=== PATIENT | female | born 1955 | race Native Hawaiian/Other Pacific Islander ===

== ENCOUNTER 2018-03-10 07:47 | Outpatient (CLI) | payer OTHER | END 2018-03-10 22:45 | disposition home or self-care (01) | LOC: LABW 07:47 | DX: R19.7 Diarrhea, unspecified (principal) | CPT/HCPCS: 82272; 83630; 87015; 87045; 87324; 87328; 87329; 87449; 87899 ==

== ENCOUNTER 2018-04-10 10:39 | Outpatient (CLI) | payer OTHER | END 2018-04-10 19:10 | disposition home or self-care (01) | LOC: LAB 10:39 | DX: K64.0 First degree hemorrhoids (principal) | CPT/HCPCS: 82272 ==

== ENCOUNTER 2018-05-28 13:59 | Outpatient (CLI) | payer OTHER | END 2018-05-28 19:49 | disposition home or self-care (01) | LOC: LABW 13:59 | DX: R50.9 Fever, unspecified (principal); M79.10 Myalgia, unspecified site; R05 Cough; R53.83 Other fatigue | CPT/HCPCS: 87502 ==

== ENCOUNTER 2018-09-22 13:20 | Emergency (ER) | payer OTHER ==
[~2018-09-22] VITALS: Ht 174 cm; Wt 95.3 kg
[2018-09-22] MEDS ORDERED: ROSU10TA PO (13:42)
[2018-09-22] MEDS ORDERED: REQUIP1 MG PO (13:42)
[2018-09-22] MEDS ORDERED: LISI5TAB10 PO (13:42)
[2018-09-22] MEDS ORDERED: MONT10TA PO (13:43)
[2018-09-22] MEDS ORDERED: OXYC5TAB53 PO (13:43)
[2018-09-22] MEDS ORDERED: NEURONTIN 100M100 MG PO (13:45)
[2018-09-22] MEDS ORDERED: ALPR0.2566 PO (13:45)
[2018-09-22] MEDS ORDERED: KP FOLIC ACID1 MG PO (13:45)
[2018-09-22] MEDS ORDERED: TOPAMAX50 MG PO (13:46)
[2018-09-22] MEDS ORDERED: ALLO100T22 PO (13:46)
[2018-09-22 13:47] LABS: PLATELET COUNT 285 K/uL (152-353)
[2018-09-22] MEDS ORDERED: PANTOPRAZOLE SO40 M1 PO (13:47)
[2018-09-22] MEDS ORDERED: POT CHLORIDE10 ME1 PO (13:47)
[2018-09-22] MEDS ORDERED: XYZAL ALLERGY 245 MG PO (13:48)
[2018-09-22] MEDS ORDERED: TIROSINT50 MCG PO (13:48)
[2018-09-22] MEDS ORDERED: BACLOFEN10 MG PO (13:48)
[2018-09-22 13:55] LABS: POTASSIUM 3.5 mmol/L (3.6-5.2)
[2018-09-22 17:30] VITALS: BP 139/82; TEMP 97.9
== END 2018-09-22 17:30 | disposition short-term general hospital (02) ==
LOC: ED 13:20
PROVIDERS: Emergency Medicine
DX: I63.89 Other cerebral infarction (principal); R47.81 Slurred speech; R29.810 Facial weakness; G81.91 Hemiplegia, unspecified affecting right dominant side; E11.9 Type 2 diabetes mellitus without complications; Z79.899 Other long term (current) drug therapy
CPT/HCPCS: 36415; 51702; 80053; 80307; 81000; 82962; 83735; 84484; 85027; 85610; 85730; 93005; 96365; 96375; 99285; J2405; J2997

== ENCOUNTER 2018-11-28 12:54 | Outpatient (CLI) | payer OTHER ==
[~2018-11-28 12:54] MED LIST: ALLO100T22 PO; ALPR0.2566 PO; BACLOFEN10 MG PO; KP FOLIC ACID1 MG PO; LISI5TAB10 PO; MONT10TA PO; NEURONTIN 100M100 MG PO; OXYC5TAB53 PO; PANTOPRAZOLE SO40 M1 PO; POT CHLORIDE10 ME1 PO; REQUIP1 MG PO; ROSU10TA PO; TIROSINT50 MCG PO; TOPAMAX50 MG PO; XYZAL ALLERGY 245 MG PO
== END 2018-11-28 21:53 | disposition home or self-care (01) ==
LOC: MAMMO 12:54
DX: Z12.31 Encounter for screening mammogram for malignant neoplasm of breast (principal)

== ENCOUNTER 2019-04-09 10:36 | Outpatient (CLI) | payer OTHER | END 2019-04-09 22:29 | disposition home or self-care (01) | LOC: LABW 10:36 | DX: M79.18 Myalgia, other site (principal); R50.9 Fever, unspecified | CPT/HCPCS: 87502 ==

== ENCOUNTER 2019-10-30 09:50 | Outpatient (CLI) | payer OTHER | END 2019-10-30 19:59 | disposition home or self-care (01) | LOC: RAD 09:50 → RESP 09:50 | DX: R06.09 Other forms of dyspnea (principal) ==

== ENCOUNTER 2020-04-05 10:02 | Outpatient (CLI) | payer OTHER | END 2020-04-05 22:07 | disposition home or self-care (01) | LOC: LAB 10:02 | PROVIDERS: ATTEND Nurse Practitioner Family | DX: U07.1 COVID-19 (principal); R06.02 Shortness of breath | CPT/HCPCS: 36415; 36600; 82728; 82805; 86140 ==

== ENCOUNTER 2020-09-28 12:35 | Outpatient (CLI) | payer OTHER | END 2020-09-28 23:59 | disposition home or self-care (01) | LOC: RAD 12:35 | PROVIDERS: ATTEND Nurse Practitioner Family | DX: G47.39 Other sleep apnea (principal); M35.01 Sjogren syndrome with keratoconjunctivitis; M85.89 Other specified disorders of bone density and structure, multiple sites ==

== ENCOUNTER 2021-09-13 14:11 | Outpatient (CLI) | payer OTHER | END 2021-09-13 19:14 | disposition home or self-care (01) | LOC: RAD 14:11 | PROVIDERS: ATTEND Internal Medicine | DX: R05.9 Cough, unspecified (principal) ==

== ENCOUNTER 2021-10-16 09:23 | Outpatient (CLI) | payer OTHER | END 2021-10-16 18:49 | disposition home or self-care (01) | LOC: RESP 09:23 | PROVIDERS: ATTEND Nurse Practitioner Family | DX: M35.01 Sjogren syndrome with keratoconjunctivitis (principal); R53.83 Other fatigue; G47.8 Other sleep disorders; R06.09 Other forms of dyspnea ==

== ENCOUNTER 2022-02-05 15:24 | Outpatient (CLI) | payer OTHER | END 2022-02-05 19:43 | disposition home or self-care (01) | LOC: RAD 15:24 | PROVIDERS: ATTEND Internal Medicine | DX: J20.9 Acute bronchitis, unspecified (principal) ==

== ENCOUNTER 2022-08-01 09:17 | Outpatient (CLI) | payer OTHER | END 2022-08-01 19:06 | disposition home or self-care (01) | LOC: US 09:17 | PROVIDERS: ATTEND Internal Medicine | DX: R10.84 Generalized abdominal pain (principal); R63.4 Abnormal weight loss; E86.0 Dehydration; K58.9 Irritable bowel syndrome, unspecified; R11.2 Nausea with vomiting, unspecified; E11.9 Type 2 diabetes mellitus without complications | CPT/HCPCS: 36415; 82565; 84520; Q9963 ==

== ENCOUNTER → 2022-10-31 | Outpatient (CLI) | payer OTHER | LOC: RESP 10-17 09:00 | PROVIDERS: ATTEND Nurse Practitioner Family | DX: M10.09 Idiopathic gout, multiple sites (principal); M17.0 Bilateral primary osteoarthritis of knee; M35.05 Sjogren syndrome with inflammatory arthritis; M47.816 Spondylosis without myelopathy or radiculopathy, lumbar region; M85.89 Other specified disorders of bone density and structure, multiple sites; Z79.899 Other long term (current) drug therapy ==